=== PATIENT | male | born 1970 | race Caucasian/White ===

== ENCOUNTER 2021-04-12 19:44 | Emergency (ER) | payer MEDICARE | END 2021-04-12 20:00 | disposition left against medical advice (07) | LOC: ER 19:44 | DX: Z53.21 Procedure and treatment not carried out due to patient leaving prior to being seen by health care provider (principal) ==

== ENCOUNTER 2021-04-12 23:32 | Emergency (ER) | payer MEDICARE, OTHER | END 2021-04-13 05:15 | disposition home or self-care (01) | LOC: ER 23:32 | DX: S20.211A Contusion of right front wall of thorax, initial encounter (principal); Y04.0XXA Assault by unarmed brawl or fight, initial encounter ==